=== PATIENT | female | born 1980 | race Caucasian/White ===

== ENCOUNTER → 2017-08-27 | Outpatient (CLI) | payer BC | LOC: COL.RAD 06:48 | DX: K59.09 Other constipation (principal) ==

== ENCOUNTER → 2017-09-01 | Outpatient (CLI) | payer BC | LOC: COL.RAD 07:00 | DX: K59.09 Other constipation (principal) ==

== ENCOUNTER → 2018-05-28 | Outpatient (CLI) | payer BC | LOC: COL.VAS 07:50 | DX: M79.604 Pain in right leg (principal); M79.605 Pain in left leg ==